=== PATIENT | female | born 1995 | race Caucasian/White ===

== ENCOUNTER 2017-08-17 19:32 | Emergency (ER) | payer OTHER ==
--- NOTE | 2017-08-17 19:51 | ED Physician Documentation ---
PD HPI FEMALE - Stated complaint Stated Complaint: FEMALE - Chief complaint Chief Complaint: Abd Pain - History obtained from History obtained from: Patient, Family - History of Present Illness Timing - onset: Other (3 weeks of urinary burning, right-sided pelvic and back pain, Urinary frequency and chills without measured fevers.) Review of Systems Constitutional: reports: Chills, Fatigue. denies: Fever GI: reports: Abdominal Pain. denies: Nausea, Vomiting, Diarrhea : reports: Dysuria, Frequency, Hesitancy. denies: Unable to Void, Incontinent PD PAST MEDICAL HISTORY - Past Medical History Past Medical History: No - Past Surgical History Past Surgical History: No - Present Medications Home Medications: Ambulatory Orders Medication Instructions Recorded Confirmed No Known Home Medications [No 08/17/17 08/17/17 Known Home Medications] - Allergies Allergies/Adverse Reactions: Allergies Allergy/AdvReac Type Severity Reaction Status Date / Time No Known Drug Allergies Allergy Verified 08/17/17 19:35 - Social History Does the pt smoke?: No Smoking Status: Never smoker Does the pt drink ETOH?: No Does the pt have substance abuse?: No - Immunizations Immunizations are current?: Yes - POLST Patient has POLST: No PD ED PE NORMAL - Vitals Vital signs reviewed: Yes - General General: Alert and oriented X 3, No acute distress - Cardiac Cardiac: RRR, No murmur - Respiratory Respiratory: No respiratory distress, Clear bilaterally - Abdomen Abdomen: Normal bowel sounds, Soft, Non tender - Back Back: No CVA TTP - Neuro Neuro: Alert and oriented X 3, Normal speech Results - Vitals Vitals: Vital Signs - 24 hr 08/17/17 08/17/17 19:36 21:39 Temperature 36.4 C L 36.5 C Heart Rate 85 74 Respiratory 16 18 Rate Blood Pressure 130/74 130/64 O2 Saturation 100 100 Oxygen O2 Source Room air - Labs Labs: Laboratory Tests 08/17/17 08/17/17 08/17/17 19:45 20:44 20:44 WBC 9.4 RBC 4.65 Hgb 12.9 Hct 39.2 MCV 84.4 MCH 27.7 MCHC 32.9 RDW 13.7 Plt Count 364 MPV 8.0 Neut # 6.4 Lymph # 1.9 Ferry # 0.8 Eos # 0.1 Baso # 0.1 Absolute Nucleated RBC 0.00 Nucleated RBC % 0.0 Sodium 137 Potassium 3.6 Chloride 100 L Carbon Dioxide 23 Anion Gap 14.0 H BUN 15 Creatinine 0.7 Estimated GFR (MDRD) 103 Glucose 87 Calcium 9.2 Total Bilirubin 0.5 AST 34 ALT 42 Alkaline Phosphatase 67 Total Protein 8.3 H Albumin 4.6 Globulin 3.7 Albumin/Globulin Ratio 1.2 Lipase 30 Urine Color YELLOW Urine Clarity CLEAR Urine pH 6.0 Ur Specific [place] 1.025 Urine Protein NEGATIVE Urine Glucose (UA) NEGATIVE Urine Ketones 40 H Urine Occult Blood NEGATIVE Urine Nitrite NEGATIVE Urine Bilirubin NEGATIVE Urine Urobilinogen 0.2 (NORMAL) Ur Leukocyte Esterase NEGATIVE Ur Microscopic Review NOT INDICATED Urine Culture Comments NOT INDICATED Urine HCG, Qual NEGATIVE - Rads (name of study) Pelvic sono Radiology: Final report received (Consistent with involuting corpus luteum cyst on the right) PD MEDICAL DECISION MAKING - ED course ED course: Initial history and physical consistent most with UTI however this was not present on urinalysis of further workup undertaken showing ovarian cyst on the right. Departure - Departure Disposition: 01 Home, Self Care Clinical Impression: Cyst of ovary Qualifiers: Laterality: right Qualified Code(s): N83.201 - Unspecified ovarian cyst, right side Condition: Good Record reviewed to determine appropriate education?: Yes Instructions: ED Cyst Ovarian Comments: Ibuprofen as needed for pain. Follow-up with your doctor. Return if worse or if new symptoms develop.
[2017-08-17 20:23] LABS: BILIRUBIN,URINE NEGATIVE (NEGATIVE)
[2017-08-17 20:26] LABS: HCG UR QUAL NEGATIVE; UA CHARGE (STRIP ONLY) YES; UR CULTURE IF IND NOT INDICATED
[2017-08-17 20:58] LABS: BASOPHILS # (AUTO) 0.1 10^3/uL (0.0-0.1); BASOPHILS % (AUTO) 1.1 %; EOSINOPHILS # (AUTO) 0.1 10^3/uL (0.0-0.7); EOSINOPHILS % (AUTO) 1.2 %; HCT - HEMATOCRIT 39.2 % (37.0-47.0); HGB - HEMOGLOBIN 12.9 g/dL (12.0-16.0); LYMPHOCYTES # (AUTO) 1.9 10^3/uL (1.5-3.5); LYMPHOCYTES % (AUTO) 20.8 %; MEAN CORPUSCULAR HEMOGLOBIN 27.7 pg (27.0-31.0); MEAN CORPUSCULAR HGB CONC 32.9 g/dL (32.0-36.0); MEAN CORPUSCULAR VOLUME 84.4 fL (81.0-99.0); MONOCYTES # (AUTO) 0.8 10^3/uL (0.0-1.0); MONOCYTES % (AUTO) 8.3 %; NEUTROPHILS # (AUTO) 6.4 10^3/uL (1.5-6.6); NEUTROPHILS % (AUTO) 68.6 %; RED BLOOD COUNT 4.65 10^6/uL (4.20-5.40); RED CELL DISTRIBUTION WIDTH 13.7 % (12.0-15.0); UNCORRECTED WHITE BLOOD COUNT 9.4 x10^3/uL; WHITE BLOOD COUNT 9.4 x10^3/uL (4.8-10.8)
[2017-08-17 21:01] LABS: ALBUMIN/GLOBULIN RATIO 1.2 (1.0-2.2); BILIRUBIN,TOTAL 0.5 mg/dL (0.2-1.0); CALCIUM 9.2 mg/dL (8.5-10.3); CREATININE 0.7 mg/dL (0.4-1.0); POTASSIUM 3.6 mmol/L (3.5-5.0); TOTAL PROTEIN 8.3 g/dL (6.7-8.2)
[2017-08-17 21:44] VITALS: BP 130/64
--- NOTE | 2017-08-17 21:49 | Ultrasound Preliminary Report ---
Exam: US PEL NON OB W/TV + DOP IMPRESSION: 1. No ovarian torsion. 2. Small hypervascular region in the right ovary corresponding to the area of the patient's pain, mos t likely representing a involuting corpus luteal cyst. [facility] SITE ID: [id number]
--- NOTE | 2017-08-17 22:00 | Ultrasound Report ---
EXAM: PELVIC ULTRASOUND EXAM DATE: 08/17/2017 09:36 PM. CLINICAL HISTORY: Pelvic pain. LMP 07/22/2017. G0. COMPARISON: None. TECHNIQUE: Realtime transabdominal pelvic scan performed to identify the uterus and adnexa and as an overview of other pelvic structures, followed by transvaginal scan to provide greater detail of the u terus and adnexa, with static image documentation. FINDINGS: Uterus: 6.9 x 2.7 x 3.8 cm, volume 37.6 cc. Anteverted position. Normal overall size and echotexture. Masses: None. Endometrium: 9 mm. Normal. Cervix: Unremarkable. Right Ovary: 2.6 x 1.6 x 2.3 cm, volume 5.0 cc. 1 x 1.5 cm area of focal hypervascularity within the right ovary. This corresponds to the area of this young lady's symptoms. Left Ovary: 2.0 x 1.7 x 2.0 cm, volume 3.5 cc. Normal echotexture and blood flow. Free Fluid: None. Other: None. IMPRESSION: 1. No ovarian torsion. 2. Small hypervascular region in the right ovary corresponding to the area of the patient's pain, mos t likely representing an involuting corpus luteal cyst. [facility] Referring Provider Line: [phone] SITE ID: [id number]
== END 2017-08-17 22:11 | disposition home or self-care (01) ==
LOC: ED 19:32
DX: N83.201 Unspecified ovarian cyst, right side (principal)
CPT/HCPCS: 36415; 76830; 76856; 80053; 81001; 81003; 81025; 83690; 85025; 87086; 93975; 99283

== ENCOUNTER 2017-09-07 15:34 | Emergency (ER) | payer OTHER ==
[2017-09-07 16:10] LABS: BILIRUBIN,URINE NEGATIVE (NEGATIVE); GLUCOSE, URINE (UA) NEGATIVE (NEGATIVE); KETONES,URINE (UA) NEGATIVE (NEGATIVE); LEUKOCYTE ESTERASE, URINE NEGATIVE (NEGATIVE); NITRITE,URINE NEGATIVE (NEGATIVE); OCCULT BLOOD,URINE NEGATIVE (NEGATIVE); PROTEIN,URINE NEGATIVE (NEGATIVE); UROBILINOGEN,URINE 0.2 (NORMAL) E.U./dL (NORMAL)
[2017-09-07 16:13] LABS: CLARITY,URINE CLEAR (CLEAR); HCG UR QUAL NEGATIVE
--- NOTE | 2017-09-07 17:14 | ED Physician Documentation ---
PD HPI FEMALE - Stated complaint Stated Complaint: FEMALE - Chief complaint Chief Complaint: UTI - History obtained from History obtained from: Patient - History of Present Illness Timing - onset: How many days ago (few days of dysuria and feeling of bladder pressure. She has had this intermittently for a month or so, and had urine tests that did not show obvious infection. Treated with abx though and symptoms back again. No vaginal exams.) Timing - details: Intermittant Associated symptoms: Dysuria, Urinary frequency. No: Vaginal discharge, Genital sore/lesion Contributing factors: No: Exposed to STD Recently seen: Clinic Review of Systems Constitutional: denies: Fever, Chills : reports: Dysuria, Frequency. denies: Hematuria, Discharge Skin: denies: Rash, Lesions PD PAST MEDICAL HISTORY - Past Medical History GI: None INSPECTOR FIREARMS: None - Past Surgical History Past Surgical History: No - Present Medications Home Medications: Ambulatory Orders Medication Instructions Recorded Confirmed Fluconazole [Diflucan] 100 mg PO ONCE #1 tablet 09/07/17 Metronidazole [Flagyl] 500 mg PO BID #14 tablet 09/07/17 - Allergies Allergies/Adverse Reactions: Allergies Allergy/AdvReac Type Severity Reaction Status Date / Time No Known Drug Allergies Allergy Verified 08/17/17 19:35 - Social History Does the pt smoke?: No Smoking Status: Never smoker Does the pt drink ETOH?: No Does the pt have substance abuse?: No - Immunizations Immunizations are current?: Yes - POLST Patient has POLST: No PD ED PE NORMAL - Vitals Vital signs reviewed: Yes - General General: Alert and oriented X 3, No acute distress, Well developed/nourished - Abdomen Abdomen: Soft, Non tender - Female Female : Other (outer genitalia is normal. Vault with some white discharge slightly thicker to inner labia area, but milky white with odor in vault itself. Cervix does not appear irritated. ) - Rectal Rectal: Deferred - Back Back: No CVA TTP - Derm Derm: Normal color, Warm and dry, No rash Results - Vitals Vitals: Oxygen O2 Source Room air - Labs Labs: Microbiology 09/07/17 18:41 Wet Prep - Final Vaginal Laboratory Tests 09/07/17 09/07/17 15:40 18:41 Urine Color YELLOW Urine Clarity CLEAR Urine pH 7.0 Ur Specific [place] 1.020 Urine Protein NEGATIVE Urine Glucose (UA) NEGATIVE Urine Ketones NEGATIVE Urine Occult Blood NEGATIVE Urine Nitrite NEGATIVE Urine Bilirubin NEGATIVE Urine Urobilinogen 0.2 (NORMAL) Ur Leukocyte Esterase NEGATIVE Ur Microscopic Review NOT INDICATED Urine Culture Comments NOT INDICATED Urine HCG, Qual NEGATIVE C.trachomatis RNA (TMA) NOT DETECTED Chlamydia/GC Comment SEE NOTE N.gonorrhoeae RNA (TMA) NOT DETECTED PD MEDICAL DECISION MAKING - ED course Complexity details: considered differential (dysuria with normal UA, to check for vaginitis. On exam, there is vaginitis clinically. ), d/w patient Departure - Departure Disposition: Home, Self Care Clinical Impression: Dysuria Vaginitis Qualifiers: Chronicity: acute Qualified Code(s): N76.0 - Acute vaginitis Condition: Stable Record reviewed to determine appropriate education?: Yes Instructions: ED Vaginosis Bacterial Follow-Up: Chuck Dacosta ARNP [Primary Care Provider] - Prescriptions: Fluconazole [Diflucan] 100 mg PO ONCE #1 tablet Metronidazole [Flagyl] 500 mg PO BID #14 tablet Comments: On exam the does appear to be a vaginal infection and this can be causing your symptoms of difficulty urinating. We will treated with Flagyl twice daily for a week. There may be an element of yeast infection as well and you were given an antifungal here. Repeat that in 1 week. That is usually adequate for treating the yeast infection. There are cultures obtained that will result in a few days and will call you if we need to amend the antibiotics. Your symptoms of discomfort urinating well likely take a week or so to fully improve. Drink lots of fluids. Tylenol or ibuprofen if needed for pains. Be careful to avoid alcohol products while taking the metronidazole (Flagyl). Discharge Date/Time: 09/07/17 19:07
[2017-09-07 17:39] VITALS: BP 107/72
[2017-09-07] MEDS ORDERED: metroNIDAZOLE 250 MG TABLET PO STA (18:46)
[2017-09-07] MEDS ORDERED: FLUCONAZOLE 100 MG TABLET PO STA (18:46)
== END 2017-09-07 19:07 | disposition home or self-care (01) ==
LOC: ED 15:34
DX: N76.0 Acute vaginitis (principal)
CPT/HCPCS: 81003; 81025; 87210; 87491; 87591; 99283; A9270; 81001; 87086